=== PATIENT | male | born 1985 | race Caucasian/White ===

== ENCOUNTER 2017-03-25 18:27 | Emergency (ER) | payer SELFPAY ==
--- NOTE | 2017-03-25 19:58 | NUR ---
Aydee wilcox in ED - 03/26/17 at 0230 by GONZALEZ PATIENT LEFT WITHOUT BEING SEEN BY DR. RODNEY. NO FURTHER CARE PROVIDED FOR PATIENT.
--- NOTE | 2017-03-25 19:58 | NUR ---
PATIENT LEFT WITHOUT BEING SEEN BY DR. ALCARAZ. NO FURTHER CARE PROVIDED FOR PATIENT.
== END 2017-03-25 19:58 | disposition left against medical advice (07) ==
LOC: MED 18:27
DX: H92.09 Otalgia, unspecified ear (principal); Z53.21 Procedure and treatment not carried out due to patient leaving prior to being seen by health care provider